=== PATIENT | male | born 1930 | race Caucasian/White ===

== ENCOUNTER 2016-11-07 21:23 | Emergency (ER) | payer MEDICARE, OTHER ==
[~2016-11-07] VITALS: Ht 175.3 cm; Wt 58.0 kg
[2016-11-07 22:20] VITALS: BP 126/77; PULSE 93; TEMP 98.8; O2SAT 97
--- NOTE | 2016-11-07 22:32 | PD ---
HPI Chief Complaint: Altered Mental Status Time Seen by Provider: 22:06 Travel History International Travel<30 days: No Contact w/Intl Traveler<30days: No Traveled to known affect area: No History of Present Illness HPI 86yo M with PMH of HTN brought in under [employer] Act for confusion. As per [employer] Act, [place] [address] and was pulled over and the police ran his tag and found that he was reported as a missing person by friends in [place] a few days ago. Pt states he is driving to visit a friend here. He is awake, alert and orientated to person and time. Knows this is a hospital but not sure where. Pt has no complaints and denies any head trauma, LOC, chest pain, sob, n/v, abdominal pain, focal weakness or numbness. Denies any damage to car and no airbag deployment. Pt was bakered act because they said he is not able to care for himself. PFSH Past Medical History Medical History: Unable to Obtain Past Surgical History Surgical History: Unable to Obtain Social History Alcohol Use: Yes Tobacco Use: No Substance Use: No Allergies-Medications (Allergen,Severity, Reaction): Coded Allergies: No Known Allergies (Verified Allergy, Unknown, 11/07/16) Review of Systems Except as stated in HPI: all other systems reviewed are Neg Physical Exam Narrative GENERAL: 86yo M not in distress. SKIN: Focused skin assessment warm/dry. HEAD: Atraumatic. Normocephalic. EYES: Pupils equal and round at 3mm bilaterally.. No scleral icterus. No injection or drainage. ENT: Left external ear biopsy on done 2 days ago. No nasal bleeding or discharge. Mucous membranes pink and moist. NECK: Trachea midline. No JVD. No midline ttp cervical spine. CARDIOVASCULAR: Regular rate and rhythm. No murmur appreciated. RESPIRATORY: No accessory muscle use. Clear to auscultation. Breath sounds equal bilaterally. GASTROINTESTINAL: Abdomen soft, non-tender, nondistended. No rebound tenderness or guarding. MUSCULOSKELETAL: No obvious deformities. No clubbing. No cyanosis. No edema. NEUROLOGICAL: Awake and alert. No obvious cranial nerve deficits. Motor grossly within normal limits. Normal speech. PSYCHIATRIC: Appropriate mood and affect; insight and judgment normal. Data Data Last Documented VS Vital Signs Date Time Temp Pulse Resp B/P (MAP) Pulse Ox O2 Delivery O2 Flow Rate FiO2 11/08/16 12:50 11/08/16 08:27 76 18 98 Room Air 11/07/16 22:[address] Brain W/O Iv Contrast(Rout) (11/07/16 ) Complete Blood Count With Diff (11/07/16 22:17) Basic Metabolic Panel (Bmp) (11/07/16 22:17) Prothrombin Time / Inr (Pt) (11/07/16 22:17) Act Partial Throm Time (Ptt) (11/07/16 22:17) Thyroid Stimulating Hormone (11/07/16 22:17) Alcohol (Ethanol) (11/07/16 22:17) Psych Screen (11/07/16 23:38) Urinalysis - C+S If Indicated (11/07/16 23:38) Drug Screen, Random Urine (11/07/16 23:38) Labs Laboratory Tests Test 11/07/16 22:26 11/08/16 03:38 White Blood Count 10.4 TH/MM3 Red Blood Count 4.08 MIL/MM3 Hemoglobin 13.3 GM/DL Hematocrit 39.0 % Mean Corpuscular Volume 95.7 FL Mean Corpuscular Hemoglobin 32.5 PG Mean Corpuscular Hemoglobin Concent 34.0 % Red Cell Distribution Width 13.6 % Platelet Count 201 TH/MM3 Mean Platelet Volume 6.9 FL Neutrophils (%) (Auto) 87.6 % Lymphocytes (%) (Auto) 6.2 % Monocytes (%) (Auto) 5.9 % Eosinophils (%) (Auto) 0.1 % Basophils (%) (Auto) 0.2 % Neutrophils # (Auto) 9.2 TH/MM3 Lymphocytes # (Auto) 0.6 TH/MM3 Monocytes # (Auto) 0.6 TH/MM3 Eosinophils # (Auto) 0.0 TH/MM3 Basophils # (Auto) 0.0 TH/MM3 CBC Comment DIFF FINAL Differential Comment Prothrombin Time 11.7 SEC Prothromb Time International Ratio 1.1 RATIO Activated Partial Thromboplast Time 25.0 SEC Blood Urea Nitrogen 23 MG/DL Creatinine 1.37 MG/DL Random Glucose 125 MG/DL Calcium Level 9.1 MG/DL Sodium Level 142 MEQ/L Potassium Level 3.9 MEQ/L Chloride Level 110 MEQ/L Carbon Dioxide Level 23.3 MEQ/L Anion Gap 9 MEQ/L Estimat Glomerular Filtration Rate 49 ML/MIN Thyroid Stimulating Hormone 3rd Gen 0.961 uIU/ML Ethyl Alcohol Level LESS THAN 3 MG/DL Urine Color YELLOW Urine Turbidity CLEAR Urine pH 5.5 Urine Specific [place] 1.026 Urine Protein 30 mg/dL Urine Glucose (UA) NEG mg/dL Urine Ketones 80 mg/dL Urine Occult Blood MOD Urine Nitrite NEG Urine Bilirubin NEG Urine Urobilinogen LESS THAN 2.0 MG/DL Urine Leukocyte Esterase NEG Urine RBC 4 /hpf Urine WBC 4 /hpf Urine Squamous Epithelial Cells <1 /hpf Urine Bacteria RARE /hpf Urine Hyaline Casts 11 /lpf Urine Granular Casts 1 /lpf Urine Mucus FEW /lpf Microscopic Urinalysis Comment CULT NOT INDICATED Urine Opiates Screen NEG Urine Barbiturates Screen NEG Urine Amphetamines Screen NEG Urine Benzodiazepines Screen NEG Urine Cocaine Screen NEG Urine Cannabinoids Screen NEG MDM Medical Decision Making Medical Screen Exam Complete: Yes Emergency Medical Condition: Yes Differential Diagnosis Dementia vs. delirium Narrative Course 86yo M brought in as Shah Act for being confused and was a missing person. Pt is AAOx2 and also knows that he is in a hospital. I called his brother Alfredo at [phone] and he said that his brother was never diagnosed with dementia but feels that he has been losing it for years. He said that pt has no friends in [facility] but he is not that close to his brother. He is willing to drive here to pick him up when ready. Pt also has a female friend who is his neighbor Mrs. Washburn at [phone]. I tired to call Maddison but it went to the fur dressing supervisor of their building. I spoke to Mrs. Jazmyne Damian from [facility] in [place] where pt lives and she said that he left for a doctor's appointment yesterday and never came back so missing person was called. Labs reviewed, no leukocytosis. BUN/creatinine mildly elevated and pt has no prior to compare to. TSH normal. Alcohol negative. CT brain negative. UA and Utox pending. Medically clear for psych evaluation. Family member needs to be here if BA lifted and pt is to be discharged. Diagnosis Primary Impression: Dementia Qualified Codes: F03.91 - Unspecified dementia with behavioral disturbance Ludy Lion DO Nov 07, 2016 22:32
[2016-11-07 22:50] LABS: AUTOMATED NEUTROPHIL # 9.2 TH/MM3 (1.8-7.7); BASOPHIL % 0.2 % (0.0-2.0); EOSINOPHIL % 0.1 % (0.0-4.0); HEMO FLAGS DIFF FINAL; LYMPH % 6.2 % (9.0-44.0); LYMPHOCYTE # 0.6 TH/MM3 (1.0-4.8); MEAN CELL VOLUME 95.7 FL (80.0-100.0); MEAN CORPUSCULAR HEMOGLOBIN 32.5 PG (27.0-34.0); MONO % 5.9 % (0.0-8.0); NEUT % 87.6 % (16.0-70.0); PLATELET COUNT 201 TH/MM3 (150-450); RED BLOOD COUNT 4.08 MIL/MM3 (4.50-5.90); RED CELL DISTRIBUTION WIDTH 13.6 % (11.6-17.2); WHITE BLOOD COUNT 10.4 TH/MM3 (4.0-11.0)
[2016-11-07 22:53] LABS: INTERNATIONAL NORMALIZED RATIO 1.1 RATIO; PROTHROMBIN TIME - PATIENT 11.7 SEC (9.8-11.6)
--- NOTE | 2016-11-07 22:55 | RADRPT ---
EXAM DATE/TIME: 11/07/2016 22:33 [facility] COMPARISON: No previous studies available for comparison. INDICATIONS : Altered mental status. RADIATION DOSE: 56.35 CTDIvol (mGy) MEDICAL HISTORY : None SURGICAL HISTORY : None. ENCOUNTER: Initial ACUITY: 1 day PAIN SCALE: 0/10 LOCATION: cranial TECHNIQUE: Multiple contiguous axial images were obtained of the head. Using automated exposure control and adj ustment of the mA and/or kV according to patient size, radiation dose was kept as low as reasonably a chievable to obtain optimal diagnostic quality images. DICOM format image data is available electro nically for review and comparison. FINDINGS: CEREBRUM: The ventricles are normal for age. No evidence of midline shift, mass lesion, hemorrhage or acute in farction. No extra-axial fluid collections are seen. POSTERIOR FOSSA: The cerebellum and brainstem are intact. The 4th ventricle is midline. The cerebellopontine angle i s unremarkable. EXTRACRANIAL: The visualized portion of the orbits is intact. SKULL: The calvaria is intact. No evidence of skull fracture. CONCLUSION: No acute intracranial abnormality. Jeffrey Mckinnon MD on November 07, 2016 at 22:53 Board Certified Radiologist. This report was verified electronically.
[2016-11-07 22:58] LABS: ANION GAP 9 MEQ/L (5-15); BICARBONATE 23.3 MEQ/L (21.0-32.0); BLOOD UREA NITROGEN 23 MG/DL (7-18); CHLORIDE 110 MEQ/L (98-107); GLOMERULAR FILTRATION RATE 49 ML/MIN (>89); POTASSIUM 3.9 MEQ/L (3.5-5.1); SODIUM (NA) 142 MEQ/L (136-145)
[2016-11-07 23:01] LABS: ALCOHOL LESS THAN 3 MG/DL (0-5)
[2016-11-08 04:18] LABS: BACTERIA, URINE RARE /hpf; BLOOD, URINE MOD (NEG); COMMENT (UR) CULT NOT INDICATED; CULTURE IF INDICATED CULT NOT INDICATED; GLUCOSE,URINE NEG (NEG); GRANULAR CAST, URINE 1 /lpf; HYALINE CAST, URINE 11 /lpf (RARE); KETONE, URINE 80 mg/dL (NEG); MUCUS URINE FEW /lpf (OCC); NITRITE,URINE NEG (NEG); PH, URINE 5.5 (5.0-8.5); SQUAMOUS EPITHELIAL CELL URINE <1 /hpf (0-5); URINE COLOR YELLOW (YELLW/STRAW)
[2016-11-08 08:27] VITALS: BP 155/87; PULSE 76; RESP 18; O2SAT 98
--- NOTE | 2016-11-08 11:59 | PD ---
History of Present Illness Chief Complaint: Altered Mental Status Time Seen by Provider: 11:45 Travel History International Travel<30 Days: No Contact w/Intl Traveler<30days: No Known affected area: No Legal Status Legal Status: Shah Act Shah Act Signed By: Lars Shah Act Comment: Camilla Rodriguez History of Present Illness: History of Present Illness HPI 86yo M with no psychiatric history and reported history of mild cognitive impairment brought in under Shah Act initiated buy [employer]. As per Shah Act, pt [place] [address]mph [place] [address] and was pulled over and the police ran his tag and found that he was reported as a missing person by friends in [place] a few days ago. The patient [place] that [place] [facility] , [place] [facility] in [facility] and then became confused. This is the first time that this has happened. He has been monitored in [place] with no reports of any behavioral concerns and no significant confusion. EMR is reviewed. No previous contact with [facility] Patient is seen. Brother and friend at bedside at bedside. He is awake, alert and orientated to person and time. Knows this is a hospital but not sure where. He is engaging and cooperative. Speech is clear and logical. There is no psychosis and no edgar. He denies any suicidality. The brother has made arrangements to have the car sold and the patient's license has been suspended. The patient lives in [facility] and has support there. [facility] Past Medical History Medical History: Unable to Obtain Past Surgical History Surgical History: Unable to Obtain Psychiatric History Psychiatric History Hx Psychiatric Treatment: Denies History of Inpatient Treatment: No Guns or firearms in home: No Social History Single male, lives by himself x 10 years. He is retired. Hx Alcohol Use: Yes Hx Tobacco Use: No Hx Substance Use: No Hx of Substance Use Treatment: No Family Psychiatric History None reported Allergies-Medications (Allergen,Severity, Reaction): Coded Allergies: No Known Allergies (Verified Allergy, Unknown, 11/07/16) Review of Systems Except as stated in HPI: all other systems reviewed are Neg Exam Alert: Yes [place]: Person (ox4) Mood: Calm Affect: Appropriate Speech: Clear, Logical Eye Contact: Normal Memory Intact: Comment (No gross abnormality) Hallucinations: Other (Negative) Delusions: No Suicidal: Ideation (Deneis any) Homicidal: Ideation (Deneis any) Insight/Judgement Fair. not impaired. MDM Medical Decision Making Medical Record Reviewed: Yes Assessment/Plan History of Present Illness HPI 86yo M with no psychiatric history and reported history of mild cognitive impairment brought in under Shah Act initiated buy [employer]. As per [employer] Act, pt [place] [address] and was pulled over and the police ran his tag and found that he was reported as a missing person by friends in [place] a few days ago. The patient alleges that [place] , [place] in [facility] and then became confused Patient does not meet BA criteria. His license has been suspended and the brother is selling his car. The brother and the friend present have no concerns for hsi safety as they have taken all necessary security measures. BA is lifted. Psychiatrically clear for discharge from ED. Orders Orders Ct Brain W/O Iv Contrast(Rout) (11/07/16 ) Complete Blood Count With Diff (11/07/16 22:17) Basic Metabolic Panel (Bmp) (11/07/16 22:17) Prothrombin Time / Inr (Pt) (11/07/16 22:17) Act Partial Throm Time (Ptt) (11/07/16 22:17) Thyroid Stimulating Hormone (11/07/16 22:17) Alcohol (Ethanol) (11/07/16 22:17) Psych Screen (11/07/16 23:38) Urinalysis - C+S If Indicated (11/07/16 23:38) Drug Screen, Random Urine (11/07/16 23:38) Results Vital Signs Date Time Temp Pulse Resp B/P (MAP) Pulse Ox O2 Delivery O2 Flow Rate FiO2 11/08/16 08:27 76 18 155/87 (109) 98 Room Air 11/07/16 22:20 98.8 93 126/77 (93) 97 11/07/16 22:13 Room Air 11/07/16 22:13 Room Air Laboratory Tests Test 11/07/16 22:26 11/08/16 03:38 White Blood Count 10.4 Red Blood Count 4.08 Hemoglobin 13.3 Hematocrit 39.0 Mean Corpuscular Volume 95.7 Mean Corpuscular Hemoglobin 32.5 Mean Corpuscular Hemoglobin Concent 34.0 Red Cell Distribution Width 13.6 Platelet Count 201 Mean Platelet Volume 6.9 Neutrophils (%) (Auto) 87.6 Lymphocytes (%) (Auto) 6.2 Monocytes (%) (Auto) 5.9 Eosinophils (%) (Auto) 0.1 Basophils (%) (Auto) 0.2 Neutrophils # (Auto) 9.2 Lymphocytes # (Auto) 0.6 Monocytes # (Auto) 0.6 Eosinophils # (Auto) 0.0 Basophils # (Auto) 0.0 CBC Comment DIFF FINAL Differential Comment Prothrombin Time 11.7 Prothromb Time International Ratio 1.1 Activated Partial Thromboplast Time 25.0 Blood Urea Nitrogen 23 Creatinine 1.37 Random Glucose 125 Calcium Level 9.1 Sodium Level 142 Potassium Level 3.9 Chloride Level 110 Carbon Dioxide Level 23.3 Anion Gap 9 Estimat Glomerular Filtration Rate 49 Thyroid Stimulating Hormone 3rd Gen 0.961 Ethyl Alcohol Level LESS THAN 3 Urine Color YELLOW Urine Turbidity CLEAR Urine pH 5.5 Urine Specific [place] 1.026 Urine Protein 30 Urine Glucose (UA) NEG Urine Ketones 80 Urine Occult Blood MOD Urine Nitrite NEG Urine Bilirubin NEG Urine Urobilinogen LESS THAN 2.0 Urine Leukocyte Esterase NEG Urine RBC 4 Urine WBC 4 Urine Squamous Epithelial Cells <1 Urine Bacteria RARE Urine Hyaline Casts 11 Urine Granular Casts 1 Urine Mucus FEW Microscopic Urinalysis Comment CULT NOT INDICATED Urine Opiates Screen NEG Urine Barbiturates Screen NEG Urine Amphetamines Screen NEG Urine Benzodiazepines Screen NEG Urine Cocaine Screen NEG Urine Cannabinoids Screen NEG Diagnosis Primary Impression: Dementia Psychiatrically Cleared: Yes Med/ Other Pt Specific Info: No Change to Meds Disposition: 01 DISCHARGE HOME Condition: Stable Problem Qualifiers Primary Impression: Dementia Qualified Codes: F03.90 - Unspecified dementia without behavioral disturbance Jana Jane Nov 08, 2016 11:59
--- NOTE | 2016-11-08 12:27 | PD ---
Physical Exam Narrative I was asked to discharge the patient by psych at discharge the patient as they are lifting the Shah act. Patient's family is in the room and are taking him home. Patient denies any complaints or concerns. Patient was previously medically cleared by previous provider. Data Data Last Documented VS Vital Signs Date Time Temp Pulse Resp B/P (MAP) Pulse Ox O2 Delivery O2 Flow Rate FiO2 11/08/16 08:27 76 18 155/87 (109) 98 Room Air 11/07/16 22:[address] Brain W/O Iv Contrast(Rout) (11/07/16 ) Complete Blood Count With Diff (11/07/16 22:17) Basic Metabolic Panel (Bmp) (11/07/16 22:17) Prothrombin Time / Inr (Pt) (11/07/16 22:17) Act Partial Throm Time (Ptt) (11/07/16 22:17) Thyroid Stimulating Hormone (11/07/16 22:17) Alcohol (Ethanol) (11/07/16 22:17) Psych Screen (11/07/16 23:38) Urinalysis - C+S If Indicated (11/07/16 23:38) Drug Screen, Random Urine (11/07/16 23:38) Labs Laboratory Tests Test 11/07/16 22:26 11/08/16 03:38 White Blood Count 10.4 TH/MM3 Red Blood Count 4.08 MIL/MM3 Hemoglobin 13.3 GM/DL Hematocrit 39.0 % Mean Corpuscular Volume 95.7 FL Mean Corpuscular Hemoglobin 32.5 PG Mean Corpuscular Hemoglobin Concent 34.0 % Red Cell Distribution Width 13.6 % Platelet Count 201 TH/MM3 Mean Platelet Volume 6.9 FL Neutrophils (%) (Auto) 87.6 % Lymphocytes (%) (Auto) 6.2 % Monocytes (%) (Auto) 5.9 % Eosinophils (%) (Auto) 0.1 % Basophils (%) (Auto) 0.2 % Neutrophils # (Auto) 9.2 TH/MM3 Lymphocytes # (Auto) 0.6 TH/MM3 Monocytes # (Auto) 0.6 TH/MM3 Eosinophils # (Auto) 0.0 TH/MM3 Basophils # (Auto) 0.0 TH/MM3 CBC Comment DIFF FINAL Differential Comment Prothrombin Time 11.7 SEC Prothromb Time International Ratio 1.1 RATIO Activated Partial Thromboplast Time 25.0 SEC Blood Urea Nitrogen 23 MG/DL Creatinine 1.37 MG/DL Random Glucose 125 MG/DL Calcium Level 9.1 MG/DL Sodium Level 142 MEQ/L Potassium Level 3.9 MEQ/L Chloride Level 110 MEQ/L Carbon Dioxide Level 23.3 MEQ/L Anion Gap 9 MEQ/L Estimat Glomerular Filtration Rate 49 ML/MIN Thyroid Stimulating Hormone 3rd Gen 0.961 uIU/ML Ethyl Alcohol Level LESS THAN 3 MG/DL Urine Color YELLOW Urine Turbidity CLEAR Urine pH 5.5 Urine Specific [place] 1.026 Urine Protein 30 mg/dL Urine Glucose (UA) NEG mg/dL Urine Ketones 80 mg/dL Urine Occult Blood MOD Urine Nitrite NEG Urine Bilirubin NEG Urine Urobilinogen LESS THAN 2.0 MG/DL Urine Leukocyte Esterase NEG Urine RBC 4 /hpf Urine WBC 4 /hpf Urine Squamous Epithelial Cells <1 /hpf Urine Bacteria RARE /hpf Urine Hyaline Casts 11 /lpf Urine Granular Casts 1 /lpf Urine Mucus FEW /lpf Microscopic Urinalysis Comment CULT NOT INDICATED Urine Opiates Screen NEG Urine Barbiturates Screen NEG Urine Amphetamines Screen NEG Urine Benzodiazepines Screen NEG Urine Cocaine Screen NEG Urine Cannabinoids Screen NEG MDM Supervised Visit with CARL: No Diagnosis Primary Impression: Dementia Qualified Codes: F03.91 - Unspecified dementia with behavioral disturbance Disposition: 01 DISCHARGE HOME Condition: Stable Lewis Waldron Nov 08, 2016 12:27
== END 2016-11-08 13:00 | disposition home or self-care (01) ==
LOC: NEPD 21:23
DX: F03.91 Unspecified dementia, unspecified severity, with behavioral disturbance (principal)
CPT/HCPCS: 70450; 80048; 80307; 81001; 84443; 85025; 85610; 85730; 99284